=== PATIENT | male | born 2005 | race African-American/Black ===

== ENCOUNTER 2024-01-08 02:34 | Emergency (ER) | payer SELFPAY ==
[~2024-01-08] VITALS: Ht 170.2 cm; Wt 64.0 kg
[2024-01-08 02:39] VITALS: PULSE 82
[2024-01-08 02:44] VITALS: BP 155/91; RESP 18; TEMP 98.4; O2SAT 98
== END 2024-01-08 07:04 | disposition left against medical advice (07) ==
LOC: ER 02:34
DX: K08.89 Other specified disorders of teeth and supporting structures (principal); Z53.21 Procedure and treatment not carried out due to patient leaving prior to being seen by health care provider
CPT/HCPCS: 99281